=== PATIENT | female | born 1965 | race African-American/Black ===

== ENCOUNTER 2017-09-11 10:54 | Outpatient (CLI) | payer BC ==
--- NOTE | 2017-09-24 13:51 | MMO ---
BILATERAL SCREENING MAMMOGRAMS: INDICATIONS: Annual exam. COMPARISON: 07/24/2016 FINDINGS: The interpretation of this examination was assisted with computer aided detection. There are scattered fibroglandular elements bilaterally. There are benign appearing calcifications bilaterally. No suspicious mass, cluster of microcalcification, or area of architectural distortion is evident. IMPRESSION: BI-RADS Category 2: Benign. Recommend routine annual mammographic screening. POS: DAVID
== END 2017-09-11 10:55 | disposition home or self-care (01) ==
LOC: SCSMAMMO 10:54
PROVIDERS: ATTEND Family Medicine
DX: Z12.31 Encounter for screening mammogram for malignant neoplasm of breast (principal)
CPT/HCPCS: 77067